=== PATIENT | male | born 1955 | race Caucasian/White ===

== ENCOUNTER 2016-11-07 15:54 | Day surgery (SDC) | payer BC ==
--- NOTE | ~2016-11-07 | EGD ---
EGD REPORT [facility] [address] [place] [address] NAME: CAROLE MENDEZ : 59 STATUS : REG ER PAT#: [id number] AGE: 61 ADM/REG DATE : 11/07/16 MR#: [id number] REPORT SERV DATE: 11/07/16 DICTATED BY: DARA MURILLO III DATE: 11/07/16 REPORT STATUS : Draft TRANSCRIBED BY: [facility] DATE: 11/07/16 [facility] Patient Name: Carole Mendez Date of : 1955 Attending MD: DARA MURILLO III, MD Procedure Date No Time: 11/07/2016 Procedure: Upper GI endoscopy Indications: Dysphagia, Foreign body in the esophagus Referring MD: Yesenia Brar Medicines: General Anesthesia Complications: No immediate complications. Procedure: Pre-Anesthesia Assessment: - ASA Grade Assessment: E - Emergency. - ASA Grade Assessment: III - A patient with severe systemic disease. After obtaining informed consent, the endoscope was passed under direct vision. Throughout the procedure, the patient's blood pressure, pulse, and oxygen saturations were monitored continuously. The GIF [id number] was introduced through the mouth, and advanced to the third part of duodenum. The upper GI endoscopy was accomplished with ease. The patient tolerated the procedure well. Findings: Food was found at the cricopharyngeus. Removal of food was accomplished and the rest was tripoded (impaled) and navigated down into the stomach. A small hiatus hernia was present. The examined duodenum was normal. One cratered esophageal ulcer with an associated tear no bleeding and stigmata of recent bleeding was found at the cricopharyngeus. The lesion was 20 mm in largest dimension. Biopsies were taken with a cold forceps for histology. Impression: - Food at the cricopharyngeus. Removal was successful. - Hiatus hernia. - Normal examined duodenum. - Non-bleeding esophageal ulcer. Biopsied. Recommendation: - Patient has a contact number available for emergencies. The signs and symptoms of potential delayed complications were discussed with the patient. Return to normal activities tomorrow. Written discharge instructions were provided to the patient. - Discharge patient to home. EGD REPORT [address] [address] NAME: CAROLE MENDEZ : [birth year] STATUS : REG ER PAT#: [id number] AGE: 61 ADM/REG DATE : 11/07/16 MR#: [id number] REPORT SERV DATE: 11/07/16 DICTATED BY: DARA MURILLO III DATE: 11/07/16 REPORT STATUS : Draft TRANSCRIBED BY: [employer] DATE: 11/07/16 - Clear liquid diet for 2 days. - Follow an antireflux regimen. - Await pathology results. Procedure Code(s): --- Professional --- 56530, Esophagogastroduodenoscopy, flexible, transoral; with removal of foreign body 56802, Esophagogastroduodenoscopy, flexible, transoral; with biopsy, single or multiple Diagnosis Code(s): --- Professional --- T18.128A, Food in esophagus causing other injury, initial encounter K44.9, Diaphragmatic hernia without obstruction or gangrene K22.10, Ulcer of esophagus without bleeding R13.10, Dysphagia, unspecified T18.108A, Unspecified foreign body in esophagus causing other injury, initial encounter CPT copyright 2013 [employer]. All rights reserved. The codes documented in this report are preliminary and upon senior corporate accountant review may be revised to meet current compliance requirements. DARA MURILLO III, MD 11/07/2016 9:31 PM This report has been signed electronically. Number of Addenda: 0 Note Initiated On: 11/07/2016 8:35 PM Scope Withdrawal Time 0 hours 0 minutes 0 seconds [address] [place] [address] [id number]
[~2016-11-07 15:54] MED LIST: DENIES HOME MEDS
[2016-11-07 20:03] LABS: BASOPHILS 0.1 %; BASOPHILS ABSOLUTE 0.01 10/3/uL (0.0-0.16); EOSINOPHILS 0.4 %; EOSINOPHILS ABSOLUTE 0.03 10/3/uL (0.0-0.53); ER CBC TAT 0 Hrs 14 Mins; HEMOGLOBIN 15.6 g/dL (13.6-17.8); IMMATURE GRANULOCYTES 0.2 %; IMMATURE GRANULOCYTES ABSOLUTE 0.02 10/3/uL (0.0-0.11); LYMPHOCYTES 14.5 %; LYMPHOCYTES ABSOLUTE 1.22 10/3/uL (0.67-4.30); MANUAL DIFF NO %; MEAN CORPUS HGB CONC 36.3 g/dL (32.0-36.0); MEAN CORPUSCULAR HEMOGLOB 38.3 pg (26.0-34.0); MEAN CORPUSCULAR VOLUME 105.7 fL (80-100); MEAN PLATELET VOLUME 9.4 fL (9.2-13.0); MONOCYTES 6.9 %; MONOCYTES ABSOLUTE 0.58 10/3/uL (0.21-1.20); NEUTROPHILS 77.9 %; NEUTROPHILS ABSOLUTE 6.53 10/3/uL (2.02-8.40); PARTIAL THROMBO TIME 28.6 SEC (22.5-37.2); PLATELET COUNT 247 10/3/uL (150-400); PROTIME (NOT ORD) 13.1 SEC (12.0-14.5); RBC DISTRIBUTION WIDTH 11.8 % (12.0-16.0); RED CELL COUNT 4.07 10/6/uL (4.7-6.1); WHITE BLOOD CELLS 8.4 10/3/uL (4.5-10.5)
[2016-11-07 20:06] LABS: CALCIUM, SERUM 9.8 MG/DL (8.5-10.4); CHLORIDE, SERUM 95 MMOL/L (96-112); CO2 (CARBON DIOXIDE) 26 MMOL/L (24-34); CREATININE 0.94 MG/DL (0.70-1.30); GFR AFRICAN AMERICAN 102 ML/MIN (>=60); GFR NON AFRICAN AMERICAN 88 ML/MIN (>=60); GLUCOSE, SERUM 88 MG/DL (60-99); POTASSIUM, SERUM 3.6 MMOL/L (3.5-5.3); SODIUM, SERUM 135 MMOL/L (135-148)
[2016-11-07 20:08] LABS: BUN (BLOOD UREA NITROGEN) 10 MG/DL (6-23)
== END 2016-11-07 23:50 | disposition home or self-care (01) ==
LOC: ER 15:54 → GI 20:42
PROVIDERS: Hospitalist; Internal Medicine Gastroenterology
PROC: 0DC58ZZ Extirpation of Matter from Esophagus, Via Natural or Artificial Opening Endoscopic (ICD-10-PCS; principal; 2016-11-07 20:58)
PROC: 0DB58ZX Excision of Esophagus, Via Natural or Artificial Opening Endoscopic, Diagnostic (ICD-10-PCS; 2016-11-07 20:58)
DX: T18.128A Food in esophagus causing other injury, initial encounter (principal); K44.9 Diaphragmatic hernia without obstruction or gangrene; K22.10 Ulcer of esophagus without bleeding; I10 Essential (primary) hypertension; K21.9 Gastro-esophageal reflux disease without esophagitis; F17.210 Nicotine dependence, cigarettes, uncomplicated; Z86.69 Personal history of other diseases of the nervous system and sense organs
CPT/HCPCS: 71010; 80048; 85025; 85610; 85730; 88305; 93005; 99285; J0330; J3010